=== PATIENT | female | born 1970 | race Caucasian/White ===

== ENCOUNTER → 2017-10-09 | Day surgery (SDC) | payer OTHER ==
[~2017-10-09] VITALS: Ht 152.4 cm; Wt 80.7 kg
[~2017-10-09] MED LIST: AMITRIPTYLINE H25 M2 PO; AMLODIPINE BESY10 M1 PO; CYMBALTA60 M1 PO; DUEXIS 800-26.1 EACH PO; GABAPENTIN600 M1 PO; MOVANTIK12.5 M1 PO; OMEPRAZOLE40 M1 PO; OXYCODONE HCL20 M2 PO; ZESTRIL10 M1 PO
--- NOTE | 2017-10-09 14:39 | Operative Report ---
Operative/Inv Procedure Report Surgery Date: 10/09/17 Name of Procedure: Release right carpal tunnel Pre-Operative Diagnosis: Right-sided carpal tunnel syndrome Post-Operative Diagnosis: Same Estimated Blood Loss: scant Surgeon/Helper Coordinator: Giles Carr MD Anesthesia: moderate sedation Operative/Procedure Note Note: Patient was counseled in regards to the procedure the alternatives the risks and expected outcomes as relates to her request for surgical intervention to treat symptomatic right-sided carpal tunnel syndrome. She was given an ASO PDS form to read and understand. She has no questions regarding it today. We again talked about failure to achieve desired results infection bleeding pain numbness possibly permanently in the palm or fingertips or recurrence. She was marked appropriately on the right side. She signed informed consent. She was taken to the operating room placed supine on the table. Intravenous sedation antibiotics were given in the right hand was prepped and draped in usual sterile fashion. A palmar incision was made after the application of a forearm tourniquet. The incision was deepened through the palmar fascia. The transverse carpal ligament was inspected under direct vision and opened. No other pathology was seen. The wound was irrigated closed with an extension splint. Ends dictation
== END ==
LOC: STS 01:01
DX: G56.01 Carpal tunnel syndrome, right upper limb (principal); I10 Essential (primary) hypertension; K21.9 Gastro-esophageal reflux disease without esophagitis; F17.200 Nicotine dependence, unspecified, uncomplicated
CPT/HCPCS: 81025; J0690; J2250